=== PATIENT | female | born 1995 | race Caucasian/White ===

== ENCOUNTER → 2020-12-25 17:19 | Outpatient (CLI) | payer BC, SELFPAY ==
--- NOTE | ~2020-12-25 | XR_ITS ---
XR abdomen/kub 1V DATE: 12/25/2020 17:40 INDICATION: Constipation TECHNIQUE: AP projection, 2 views COMPARISON: None FINDINGS: Nonspecific bowel gas pattern without evidence of obstruction. No visceromegaly is evident. No significant abnormal calcification. Included skeletal structures are unremarkable. IMPRESSION: Nonspecific abdomen Reviewed, dictated and finalized at [facility]. Reviewed, dictated and finalized at [facility]. IMPRESSION: Nonspecific abdomen
== END ==
PROVIDERS: PCP Nurse Practitioner Family; Visit Provider Nurse Practitioner Family
DX: K59.00 Constipation, unspecified (principal)
CPT/HCPCS: 74018

== ENCOUNTER → 2021-04-07 14:56 | Outpatient (CLI) | payer BC, SELFPAY ==
--- NOTE | ~2021-04-07 | XR_ITS ---
EXAMINATION: XR knee RT 3V DATE: 04/07/2021 15:58 INDICATION: Right knee pain TECHNIQUE: Three views of the right knee were obtained. COMPARISON: None. FINDINGS: Alignment is normal. No fracture or osteochondral lesion. Joint spaces are normal with no e rosions. No joint effusion/synovitis. Soft tissues are unremarkable. IMPRESSION: 1. No acute osseous abnormality. Reviewed, dictated and finalized at [facility].
== END ==
PROVIDERS: PCP Nurse Practitioner Family; Visit Provider Nurse Practitioner Family
DX: M25.561 Pain in right knee (principal)
CPT/HCPCS: 73562

== ENCOUNTER → 2021-11-12 13:52 | Outpatient (CLI) | payer OTHER, SELFPAY ==
--- NOTE | ~2021-11-12 | XR_ITS ---
EXAMINATION: XR chest 2V DATE: 11/12/2021 14:51 INDICATION: Cough. TECHNIQUE: Frontal and lateral views of the chest were obtained. COMPARISON: None. FINDINGS: There is mild scarring at the lung apices. No pleural effusion or pneumothorax. The heart s ize is normal. IMPRESSION: 1. Mild scarring at the lung apices. Reviewed, dictated and finalized at [facility].
== END ==
PROVIDERS: PCP Pediatrics; Visit Provider Pediatrics
DX: R51.9 Headache, unspecified (principal); R50.9 Fever, unspecified
CPT/HCPCS: 71046

== ENCOUNTER 2022-10-08 12:06 | Outpatient (CLI) | payer BC, SELFPAY ==
--- NOTE | 2022-10-08 | ECHO_ITS ---
Patient Info Name: Katy Liriano Age: 27 years : 1995 Gender: Female Ht: 67 in Wt: 154 lbs BSA: 1.82 m2 HR: 94 bpm BP: 122 / 81 mmHg Technical Quality: Good Exam Date: 10/08/2022 12:37 PM Exam Location: [facility] Patient Status: Outpatient Admit Date: 10/08/2022 Staff Ordering Physician: AutumnRupinder M.D. Representative Government Relations: Corry Leal RDCS Attending Provider: Chencho, Rupinder Rodríguez M.D. Referring Physician: Autumn MARTINEZ; Exam Type: CA echo doppler color flow Study Info Indications Q27.8 - ABER[facility] ARTERY Complete two-dimensional, color flow and Doppler transthoracic echocardiogram is performed. Summary 1. Complete two-dimensional, color flow and Doppler transthoracic echocardiogram is performed. 2. Left ventricular chamber dimension is normal. 3. Left ventricular systolic function is normal, estimated at 60-65%. 4. The left ventricular diastolic function is normal. 5. E/e' 5 is not elevated. 6. Global longitudinal strain is normal at -17.3%. 7. Left atrial chamber dimension is mildly enlarged. 8. There is trace mitral valve regurgitation. 9. There is trace tricuspid valve regurgitation. 10. No pulmonary hypertension, estimated pulmonary arterial systolic pressure is 24 mmHg. Left Ventricle Global longitudinal strain is normal at -17.3%. E/e' 5 is not elevated. Left ventricular chamber dimension is normal. Left ventricular systolic function is normal, estimated at 60-65%. The left ventricular diastolic function is normal. Right Ventricle Right ventricular systolic function is normal and with normal TAPSE 2.6 cm. Right ventricular chamber dimension is normal. Left Atria Left atrial chamber dimension is mildly enlarged. Right Atria Right atrial chamber dimension is normal. Aortic Valve The aortic valve is trileaflet. There is no aortic valve stenosis. There is no aortic valve regurgitation. Pulmonic Valve There is no pulmonic regurgitation. Mitral Valve There is no mitral valve stenosis. There is trace mitral valve regurgitation. Tricuspid Valve There is trace tricuspid valve regurgitation. No pulmonary hypertension, estimated pulmonary arterial systolic pressure is 24 mmHg. Pericardium/Pleural There is no pericardial effusion. Inferior Vena Cava Normal inferior vena cava with >50% collapse upon inspiration consistent with normal right atrial pressure, 5 mmHg. Aorta The aortic root size at the sinus of Valsalva is normal. Left Ventricular Outflow Tract Name Value Normal LVOT 2D LVOT Diameter 2.0 cm LVOT Doppler LVOT Peak Velocity 90 cm/s LVOT Peak Gradient 3 mmHg LVOT Mean Gradient 2 mmHg LVOT VTI 18 cm LVOT VTI/AV VTI Ratio 0.8 LVOT Stroke Volume 57 ml LVOT CO 4.6 l/min LVOT CI 2.6 l/min/m2 Pulmonic Valve Name
== END 2022-10-08 12:07 | disposition home or self-care (01) ==
PROVIDERS: PCP Pediatrics; Visit Provider Obstetrics & Gynecology
DX: Q27.8 Other specified congenital malformations of peripheral vascular system (principal)
CPT/HCPCS: 93306